=== PATIENT | female | born 1980 | race Caucasian/White ===

== ENCOUNTER 2020-03-09 08:16 | Outpatient (NON) | payer MEDICAID, SELFPAY ==
[2020-03-09 17:44] LABS: SARS-CoV-2 RNA PCR Positive
== END 2020-03-09 08:17 ==
PROVIDERS: PCP Family Medicine; Visit Provider Physician Assistant
DX: U07.1 COVID-19 (principal)
CPT/HCPCS: 87635; C9803; U0003

== ENCOUNTER 2020-07-29 22:58 | Emergency (ER) | payer OTHER, MEDICAID, SELFPAY ==
[2020-07-29 23:00] VITALS: BP 135/78; PULSE 97; RESP 18; TEMP 37.2; O2SAT 97
--- NOTE | 2020-07-29 23:15 | ED.ASTHMA ---
HPI - Asthma General Chief Complaint: Asthma Stated Complaint: asthma Time Seen by Provider: 07/29/20 23:11 Source: patient Mode of arrival: ambulatory Limitations: no limitations History of Present Illness HPI Narrative: Patient is 39 years old white female presents with exacerbation of asthma for the last 2 to 3 days. Patient used to be on albuterol and Wixela, lost her insurance, unable to buy Wixela. Patient denies any fever, chills, nausea, vomiting, chest pain. Patient reports that her breathing gets worse mainly at night when he is getting cold. Related Data Home Medications Medication Instructions Recorded Confirmed levonorgestrel 20 mcg/24 hours (6 1 device I-UTERINE ONCE 07/15/19 07/24/20 yrs) 52 mg intrauterine device albuterol sulfate INHALATION 07/29/20 Allergies Allergy/AdvReac Type Severity Reaction Status Date / Time No Known Allergies Allergy Verified 07/29/20 23:02 Review of Systems Review of Systems: Narrative: CONSTITUTIONAL: Denies fever, chills, or sweats. EYES: Denies visual changes, redness, or discharge. ENT: Denies rhinorrhea, congestion, sore throat, or otalgia. CARDIOVASCULAR: Denies chest pain, palpitations, or edema. RESPIRATORY: Denies cough or dyspnea. GASTROINTESTINAL: Denies abdominal pain, nausea, vomiting, or diarrhea. GENITOURINARY: Denies dysuria or hematuria. SKIN: Denies rash or itching. MUSCULOSKELETAL: Denies back pain, joint pain, or myalgia. NEUROLOGIC: Denies headache, numbness, or weakness. PSYCHIATRIC: Denies anxiety or depression. [facility] Past Medical History Medical History (Updated 07/29/20 @ 23:20 by Rosalva Paige MD) Asthma Vaginal delivery x 2 Surgical History Surgical History H/O LEEP History of colposcopy Family History Family History Father Acute myocardial infarction Hypertension High cholesterol Grandparent Carcinoma of colon Social History Social History Smoking status: Former smoker Alcohol intake: never Substance use: former Substance use type: marijuana Gender identity (if verbalized by the patient): Female Sexual Orientation (if Verbalized by the Patient): Straight or Heterosexual Exam Narrative: Exam Narrative: General appearance: Well-developed, well-nourished Skin: Normal color Head: Normocephalic, nontraumatic Eyes: Clear conjunctiva ENT: Oropharynx normal, ears normal, nose normal Neck: Supple, nontender Chest and respiratory: Few scattered wheezing bilaterally Heart: Regular rate/rhythm Abdomen: Soft, nontender, no organomegaly, quiet bowel sounds Vascular: Normal peripheral pulses, normal capillary refill. Musculoskeletal: Normal range of motion, nontender back Neurologic: Alert and oriented ?3, EMERGENCY MEDICAL SERVICE COORDINATOR is normal as tested, no gross motor deficit Course Course Emergency Course: Improving Vital Signs Vital signs: Vital Signs Temperature 37.2 C 07/29/20 23:00 Pulse Rate 97 07/29/20 23:00 Respiratory Rate 18 07/29/20 23:00 Blood Pressure 135/78 07/29/20 23:00 Pulse Oximetry 97 07/29/20 23:00 Temperature 37.2 C 07/29/20 23:00 Pulse Rate 97 07/29/20 23:00 Respiratory Rate 18 07/29/20 23:00 Blood Pressure 135/78 07/29/20 23:00 Pulse Oximetry 97 07/29/20 23:00 MDM - Asthma MDM Narrative Medical decision making narrative: Asthma exacerbation is my concern Critical Care Time Critical Care Time Critical Care Time: No Discharge Plan Discharge Clinical Impression: Asthma exacerbation Qualifiers: Asthma severity: mild Asthma
[2020-07-29] MEDS: predniSONE 20 MG TABLET 60 MG PO (23:27)
[2020-07-29] MEDS: ALBUTEROL SULFATE NEB 2.5 MG/0.5 ML INH 5 MG INHALATION (23:29)
[2020-07-29 23:32] VITALS: PULSE 86; RESP 20
[2020-07-29 23:44] VITALS: PULSE 91; RESP 20
[2020-07-29 23:57] VITALS: O2SAT 98
== END 2020-07-29 23:58 | disposition home or self-care (01) ==
LOC: ANHED 23:45
PROVIDERS: Emergency Provider Emergency Medicine; PCP Family Medicine
DX: J45.21 Mild intermittent asthma with (acute) exacerbation (principal); Z87.891 Personal history of nicotine dependence
CPT/HCPCS: 94640; 99283; J7512

== ENCOUNTER 2021-08-21 09:26 | Outpatient (CLI) | payer OTHER, SELFPAY ==
--- NOTE | ~2021-08-21 | MM_ITS ---
EXAMINATION: MM screening zenobia BI w anupam HISTORY: Screening mammogram; baseline examination TECHNIQUE: Craniocaudal and mediolateral oblique 3-D tomosynthesis images were obtained and synthetic 2-D images were generated. CAD analysis was submitted and interpreted. COMPARISON: No prior mammogram is available for comparison at this institution. BREAST PARENCHYMAL COMPOSITION: There are scattered areas of fibroglandular density. FINDINGS: Benign-appearing circumscribed opacity is most consistent with lymph nodes in the axillary tails. There is no evidence of suspicious mass, calcification, or architectural distortion to suggest malignancy in either breast. There has been no suspicious interval change. IMPRESSION: 1. No mammographic evidence of malignancy. 2. Recommend routine screening mammography in one year. BI-RADS Category 2: Benign finding(s). Reviewed, dictated and finalized at location A.
== END 2021-08-21 09:27 | disposition home or self-care (01) ==
LOC: ANHIMG 09:27
PROVIDERS: PCP Nurse Practitioner Adult Health; Visit Provider Obstetrics & Gynecology
DX: Z12.31 Encounter for screening mammogram for malignant neoplasm of breast (principal)
CPT/HCPCS: 77063; 77067

== ENCOUNTER 2023-07-17 08:40 | Outpatient (CLI) | payer OTHER, SELFPAY ==
--- NOTE | ~2023-07-17 | MM_ITS ---
EXAMINATION: MM screening zenobia BI w anupam HISTORY: Screening mammogram TECHNIQUE: Craniocaudal and mediolateral oblique 3-D tomosynthesis images were obtained and synthetic 2-D images were generated. CAD analysis was submitted and interpreted. COMPARISON: 08/21/2021 BREAST PARENCHYMAL COMPOSITION:Not Dense. There are scattered areas of fibroglandular density. FINDINGS: Stable lymph nodes at the outer right breast. No suspicious mass, calcification, or archite ctural distortion are identified in either breast to suggest malignancy. There has been no suspicious interval change. IMPRESSION: No mammographic evidence of malignancy. Recommend routine screening mammography in one year. BI-RADS Category 2: Benign finding(s). Reviewed, dictated and finalized at location . RNATIONAL LOGISTICS COORDINATOR
== END 2023-07-17 08:41 | disposition home or self-care (01) ==
PROVIDERS: PCP Nurse Practitioner Adult Health; Visit Provider Obstetrics & Gynecology
DX: Z12.31 Encounter for screening mammogram for malignant neoplasm of breast (principal)
CPT/HCPCS: 77063; 77067

== ENCOUNTER 2024-12-06 09:41 | Outpatient (CLI) | payer OTHER, SELFPAY ==
--- NOTE | ~2024-12-06 | MM_ITS ---
EXAMINATION: MM screening zenobia BI w anupam HISTORY: Screening TECHNIQUE: Craniocaudal and mediolateral oblique 3-D tomosynthesis images were obtained and synthetic 2-D images were generated. CAD analysis was submitted and interpreted. COMPARISON: Comparison to multiple prior studies sequentially, with oldest reviewed study dated 08/21. BREAST PARENCHYMAL COMPOSITION: Not dense: There are scattered areas of fibroglandular density. FINDINGS: There is no evidence of suspicious mass, calcification, or architectural distortion to sugg est malignancy in either breast. There has been no suspicious interval change. IMPRESSION: 1. No mammographic evidence of malignancy. 2. Recommend routine screening mammography in one year. BI-RADS Category 1: Negative Reviewed, dictated and finalized at location B.
--- OUTSIDE RECORDS SUMMARY | 2024-12-06 10:04 | XMS_ITS | Clinical Summary ---
Author Organization [address] Address [address] [place] [id number] Care Team Providers Care Softball Core Molder Name Role Phone No, Physician Primary Care Provider [phone] Allergies No known active allergies Medications budesonide-formote rol (SYMBICORT) 160-4.5 mcg/actuation inhaler 0 Inhaler 0 02/15/20 16 Active Additional Information Patient not taking.Reported on 08/15/2023 albuterol HFA (VENTOLIN HFA) 90 mcg/actuation inhaler 90 mcg. 0 Inhaler 0 02/15/20 16 Active acetaminophen-code ine (TYLENOL with CODEINE #3) 300-30 mg per tablet TK 1 T PO Q 4 H PRF MORGAN Active aluminum chloride (Drysol Dab-O-Matic) 20 % external solution APPLY TOPICALLY TO THE AFFECTED AREA 2 TIMES A WEEK NEEDED FOR EXCESSIVE SWEATING Active cholecalciferol (VITAMIN D-3) 1,000 unit capsule Take 1 capsule every day by oral route with meal(s) for 30 days. 05/08/20 23 Active cyanocobalamin (Vitamin B-12) 1,[address] 1 tablet twice a day by sublingual route for 30 days. 05/08/20 23 Active FLUoxetine 10 mg tablet/capsule Take 1 tablet/capsule (10 mg total) by mouth every morning Active Advair Diskus 250-50 mcg/dose diskus inhaler Inhale 1 puff 2 (two) times a day 07/28/19 24 Active levonorgestreL (Mirena) IUD Take 1 insert by intrauterine route. Active metroNIDAZOLE (METROGEL) 0.75 % (37.5mg/5 gram) vaginal gel INSERT 1 APPLICATORFUL VAGINALLY EVERY DAY AT BEDTIME FOR 5 DAYS Active ondansetron ODT (ZOFRAN-ODT) 4 mg disintegrating tablet DISSOLVE 1 T PO Q 6 TO 8 H PRN NV Active polyethylene glycol (MIRALAX) 17 gram/dose bulk powder Take 17 g by mouth daily 05/31/19 17 Active predniSONE (DELTASONE) 10 mg tablet TK 4 TS PO X 3 DAYS THEN 2 TS X 3 DAYS THEN 1 T X 3DAYS Active sertraline (ZOLOFT) 25 mg tablet Take 1 tablet every day by oral route. Active sulfamethoxazole-t rimethoprim (BACTRIM DS) 800-160 mg per tablet Take 1 tablet by mouth 2 (two) times a day Active valACYclovir (VALTREX) 1 gram tablet Active Active Problems Problem Noted Date Diagnosed Date Atypical squamous cells of u ndetermined significance (ASCUS) on Papanicolaou smear of cervix 08/15/2023 Excessive sweating 08/15/2023 Premenstrual tension syndrome 08/15/2023 Low serum vitamin B12 05/07/2023 Low vitamin D level 05/07/2023 Unable to concentrate 04/07/2023 Axillary hyperhidrosis 01/28/2022 Multiple benign melanocytic nevi of upper and lower extremities and trunk 01/28/2022 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 Asthma 04/24/2021 History of severe acute resp iratory syndrome coronavirus 2 (SARS-CoV-2) disease 04/24/2021 Immunizations Immunization Administration Dates Next Due Influenza, Quadrivalent, Spl it, Preservative Free, Intramuscular 03/03/2019 TD Preservative Free 12/09/2019 Medical History Medical History Date Comments Asthma Asthma Social History Tobacco Use Types Packs/Day Years Used Date Smoking Tobacco: Never Smokeless Tobacco: Never Comments Unknown Sex and Gender Information Value Date Recorded Sex Assigned at Not on file Legal Sex Female 6:41 AM CURB SETTER Gender Identity Not on file Sexual Orientation Not on file Obstetrics History Last Filed Vital Signs Vital Sign Reading Time Taken Comments Blood Pressure 116/80 07/17/2024 4:02 PM CURB SETTER Pulse 95 07/17/2024 4:02 PM CURB SETTER Temperature 36.6 C (97.8 F) 07/17/2024 4:02 PM CURB SETTER Respiratory Rate 20 07/17/2024 4:02 PM CURB SETTER Oxygen Saturation 98% 07/17/2024 4:02 PM CURB SETTER Inhaled Oxygen Concentration - - Weight 77.1 kg (170 lb) 07/17/2024 4:02 PM CURB SETTER Height 162.6 cm (5' 4) 07/17/2024 4:02 PM CURB SETTER Body Mass Index 29.18 07/17/2024 4:02 PM CURB SETTER Plan of Treatment Health Maintenance Due Date Last Done Comments Breast Cancer Screening-Mammogram 1980 Cervical Cancer Screening 1980 Depression Screening 1980 Hepatitis C Screening 1980 Varicella Vaccines (1 of 2 - 13+ 2-dose series) 1993 Hepatitis B Screening 1998 Regular Well Visit/Exam 18-64 1998 Pneumococcal vaccine <65 (1 of 2 - PCV) 08/13/1999 HPV Vaccines (1 - 3-dose SCDM series) 08/13/2007 DTaP/Tdap/Td Vaccine (1 - Tdap) 12/10/2019 0 Covid-19 Vaccine (3 - 2023- season) 01/11/202409/2020, 07/14/2020 Influenza Vaccine Discontinued 03/03/2019 Insurance [facility] Care Teams Softball Core Molder Relationship Specialty Start Date End Date No, Physician PCP - General 04/30/17
--- OUTSIDE RECORDS SUMMARY | 2024-12-06 10:04 | XMS_ITS | Clinical Summary ---
Author Organization [facility] Address [address] [place] [address] Phone Care Team Providers Care Wood Last Maker Name Role Phone Provider, None Primary Care Provider Unavailabl e Allergies No known active allergies Medications ALBUTEROL IN take by inhalation. Active Budesonide-Form oterol Fumarate (SYMBICORT IN) take by inhalation. Active sulfamethoxazol e-trimethoprim DS (BACTRIM DS) 800-160 MG Tablet Take 1 Tab by mouth 2 times daily. Active polyethylene glycol (MIRALAX) Powder Take 17 g by mouth daily. 17 g = 1 scoop. Dissolve in 4 -8 oz of water or other liquid. 250 g 0 05/31/2016 Active Social History Tobacco Use Types Packs/Day Years Used Date Smoking Tobacco: Former Cigarettes Q uit: 05/31/2011 Alcohol Use Standard Drinks/Week Comments Yes 0 (1 standard drink = 0.6 oz pur e alcohol) Socially Comments No Sex and Gender Information Value Date Recorded Sex Assigned at Not on file Legal Sex Female 11:55 PM CDT Gender Identity Not on file Sexual Orientation Not on file Last Filed Vital Signs Vital Sign Reading Time Taken Comments Blood Pressure 117/64 05/31/2016 8:35 PM HEAD ESTHETICIAN Pulse 77 05/31/2016 10:41 PM HEAD ESTHETICIAN Temperature 37 C (98.6 F) 05/31/2016 8:32 PM HEAD ESTHETICIAN Respiratory Rate 16 05/31/2016 8:32 PM HEAD ESTHETICIAN Oxygen Saturation 99% 05/31/2016 10:41 PM HEAD ESTHETICIAN Inhaled Oxygen Concentration - - Weight 73 kg (161 lb) 05/31/2016 8:32 PM HEAD ESTHETICIAN Height 162.6 cm (5' 4) 05/31/2016 8:32 PM HEAD ESTHETICIAN Body Mass Index 27.64 05/31/2016 8:32 PM HEAD ESTHETICIAN Plan of Treatment Health Maintenance Due Date Last Done Comments Hepatitis C Virus (HCV) Screening 1980 TdaP Immunization 1980 Human Papillomavirus (HPV) Immunization (1 - 3-dose series) 08/13/1995 Hepatitis B Immunization (1 of 3 - 19+ 3-dose series) 08/13/1999 Pap Smear 2001 Cervical Cancer Screening (CCS) 2010 HPV/Cotest 2010 SARS-COV-2 Immunization ( - 2023-25 season) 2024 Influenza Immunization (#1) 2025 Respiratory Syncytial Virus (RSV) Immunization (Adult) (1 - 1-dose 75+ series) 08/13/2055 Meningococcal Immunization (ACWY) Aged Out No longer eligible based on patient's age to complete this topic Pneumococcal Immunization Combined Aged Out No longer eligible based on patient's age to complete this topic Rotavirus Immunization Aged Out No lo nger eligible based on patient's age to complete this topic Insurance [employer] Care Teams Wood Last Maker Relationship Specialty Start Date End Date Provider, None [place] PCP - General 05/31/16
--- OUTSIDE RECORDS SUMMARY | 2024-12-06 10:04 | XMS_ITS | Referral Summary ---
Author Organization [facility] [address] Address [address] [place] [id number] Care Team Providers Care Tunnel Inspector Name Role Phone No, Physician Primary Care Provider [phone] Allergies No known active allergies Medications budesonide-formote [...] Free, Intramuscular 03/03/2019 TD Preservative Free 12/09/2019 Social History Tobacco Use Types Packs/Day Years Used Date Smoking Tobacco: Never Smokeless Tobacco: Never Comments Unknown Sex and Gender Information Value Date Recorded Sex Assigned at Not on file Legal Sex Female 6:41 AM SECONDARY SET UP MAN Gender Identity Not on file Sexual Orientation Not on file Last Filed Vital Signs Vital Sign Reading Time Taken Comments Blood Pressure 116/80 07/17/2024 4:02 PM SECONDARY SET UP MAN Pulse 95 07/17/2024 4:02 PM SECONDARY SET UP MAN Temperature 36.6 C (97.8 F) 07/17/2024 4:02 PM SECONDARY SET UP MAN Respiratory Rate 20 07/17/2024 4:02 PM SECONDARY SET UP MAN Oxygen Saturation 98% 07/17/2024 4:02 PM SECONDARY SET UP MAN Inhaled Oxygen Concentration - - Weight 77.1 kg (170 lb) 07/17/2024 4:02 PM SECONDARY SET UP MAN Height 162.6 cm (5' 4) 07/17/2024 4:02 PM SECONDARY SET UP MAN Body Mass Index 29.18 07/17/2024 4:02 PM SECONDARY SET UP MAN Plan of Treatment Not on file Insurance [facility] Care Teams Tunnel Inspector Relationship Specialty Start Date End Date No, Physician PCP - General 04/30/17
--- OUTSIDE RECORDS SUMMARY | 2024-12-06 10:04 | XMS_ITS | Clinical Summary ---
Author Organization [facility] Address [address] [place] [address] Care Team Providers Care Associate Professor Of Automation Name Role Phone Cira Bear Primary Care Provider [phone] Source Comments [facility],non-owned Affiliates and Associated Physician Practices is amultiple site organization consisting of ambulatory clinics and hospital sitesin [place], [place]. This disclosure is being madepursuant to the Care Everywhere program and may not contain all information available regarding this patient. Last updated 18.[facility] Allergies No known active allergies Medications * Be aware that medications may not be up to date on this document. Alwaysverify current medications with the patient. levonorgestrel (Mirena) 20 MCG/DAY IUD 1 (one) device by Intrauterine route as directed Active Montelukast Sodium (SINGULAIR PO) Activ e Fluticasone-Wally meterol (ADVAIR DISKUS IN) Active aluminum chloride (Drysol) 20 % solution Drysol Dab-O-Matic 20 % topical solution APPLY TOPICALLY TO THE AFFECTED AREA TWICE A WEEK NEEDED FOR EXCESSIVE SWEATING Active albuterol HFA (Proventil; Ventolin; Proair) 108 (90 Base) MCG/ACT inhaler albuterol sulfate HFA 90 mcg/actuation aerosol inhaler Active vitamin D3 (Cholecalcifero l) 25 MCG (1000 UNITS) tablet Take 1 (one) tablet by mouth once daily 4 Active Active Problems Problem Noted Date Diagnosed Date Multiple benign melanocytic nevi of upper and lower extremities and trunk 01/28/2022 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 hyperhidrosis 01/28/2022 Encounters Date Type Department Care Team Description 10/14/2024 Travel from Last 3 Months Immunizations Immunization Administration Dates Next Due TD (ADULT), 5 LF TETANUS TOXOID, ADSORBED, PF Social History Tobacco Use Types Packs/Day Years Used Date Smoking Tobacco: Former Smokeless Tobacco: Never Tobacco Cessation:Counseling Given: Not Answered Comments No Sex and Gender Information Value Date Recorded Sex Assigned at Not on file Legal Sex Female 5:33 AM CAR SEAT UPHOLSTERER Gender Identity Not on file Sexual Orientation Not on file Last Filed Vital Signs Vital Sign Reading Time Taken Comments Blood Pressure 118/74 08/20/2019 11:26 AM CDT Pulse 70 08/20/2019 11:26 AM CDT Temperature 36.8 C (98.2 F) 08/20/2019 11:26 AM CDT Respiratory Rate 16 08/20/2019 11:26 AM CDT Oxygen Saturation 98% 08/20/2019 11:26 AM CDT Inhaled Oxygen Concentration - - Weight 77.1 kg (170 lb) 08/20/2019 11:26 AM CDT Height 165.1 cm (5' 5) 08/20/2019 11:26 AM CDT Body Mass Index 28.29 08/20/2019 11:26 AM CDT Plan of Treatment Upcoming Encounters Date Type Department Care Team (Late st Contact Info) Description 01/13/2025 3:00 PM CDT Office Visit [facility] - General Dermatology [address], [facility] [address] [place] [address] Aquilino Garcia, PA-C [address] [facility] [address] [place] [address] Health Maintenance Due Date Last Done Comments LIPID TESTING 1980 MAMMOGRAM 1980 HIV SCREENING 08/13/1995 HEPATITIS C SCREENING 08/08/1998 HEPATITIS B VACCINE (1 of 3 - 19+ 3-dose series) 08/13/1999 PAP SMEAR 2001 HPV VACCINE (1 - 3-dose SCDM series) 08/13/2007 COVID-19 VACCINE (2023-2 5 season) 2024 08/14/2020, 07/14/2020 DEPRESSION SCREENING 05/12/2024 INFLUENZA VACCINE (#1) 2025 03/03/2019 DTAP/TDAP/TD VACCINES (2 - T d or Tdap) 12/08/2029 12/09/2019 ZOSTER VACCINE (1 of 2) 2030 HIB VACCINE Aged Out No longer eligi ble based on patient's age to complete this topic MENINGOCOCCAL (Group B) VACCINE SHARED DECISION-MAKING Aged Out No longer eligible based on patient's age to complete this topic MENINGOCOCCAL GROUPS A/C/Y/W VACCINE Aged Out No longer eligible b ased on patient's age to complete this topic PNEUMOCOCCAL VACCINE Aged Out No long er eligible based on patient's age to complete this topic Insurance [facility] Care Teams Associate Professor Of Automation Relationship Specialty Start Date End Date Cira Bear [address] [place] [phone] PCP - General 10/15/23
== END 2024-12-06 09:42 | disposition home or self-care (01) ==
LOC: ANHIMG 09:42
PROVIDERS: PCP Nurse Practitioner Adult Health; Visit Provider Obstetrics & Gynecology
DX: Z12.31 Encounter for screening mammogram for malignant neoplasm of breast (principal)
CPT/HCPCS: 77063; 77067